=== PATIENT | male | born 1970 | race Two or more races ===

== ENCOUNTER 2020-08-01 04:21 | Emergency (ER) | payer OTHER ==
[~2020-08-01] VITALS: Ht 180.3 cm; Wt 92.7 kg
[2020-08-01 04:30] VITALS: BP 135/93
[2020-08-01] MEDS ORDERED: ondansetron 4mg rapidly disintigrating tab PO ONE (04:40)
[2020-08-01] MEDS ORDERED: HYDROcodone/acetaminophen 5mg/325mg tablet PO ONE (04:40)
[2020-08-01] MEDS ORDERED: ONDA8TAB6 PO (04:41)
[2020-08-01] MEDS ORDERED: ACYC-202 PO (04:41)
[2020-08-01] MEDS ORDERED: HYDR-3965 PO (04:41)
== END 2020-08-01 05:16 | disposition home or self-care (01) ==
LOC: ER 04:24
DX: B02.9 Zoster without complications (principal); M79.601 Pain in right arm; Z79.899 Other long term (current) drug therapy
CPT/HCPCS: 99284

== ENCOUNTER 2021-08-03 18:33 | Emergency (ER) | payer OTHER ==
[~2021-08-03] VITALS: Ht 177.8 cm; Wt 89.0 kg
[~2021-08-03 18:33] MED LIST: ONDA8TAB6 PO
[2021-08-03 18:55] VITALS: BP 126/76
[2021-08-03] MEDS ORDERED: dexamethasone sod phosphate 10mg/ml inj IV STA (19:07)
[2021-08-03] MEDS ORDERED: DEXA6TAB6 PO (19:08)
[2021-08-03] MEDS ORDERED: TRAZ-251 PO (19:08)
[2021-08-03] MEDS ORDERED: ketorolac trometh. 30mg/ml inj. IV ONE (19:10)
[2021-08-03] MEDS ORDERED: normal saline 1000ML IV soln IVB ONE (19:10)
== END 2021-08-03 20:04 | disposition left against medical advice (07) ==
LOC: ER 18:33
DX: U07.1 COVID-19 (principal)
CPT/HCPCS: 99283